=== PATIENT | female | born 1980 | race Caucasian/White ===

== ENCOUNTER 2017-05-12 18:40 | Emergency (ER) | payer BC ==
[2017-05-12] MEDS ORDERED: cefTRIAXone 1 GM VIAL IM STA (19:52)
[2017-05-12] MEDS ORDERED: HYDROcod/ACETAM 5/325 MG TABLET PO STA (19:54)
--- NOTE | 2017-05-12 19:54 | ED Physician Documentation ---
PD HPI SKIN - Stated complaint Stated Complaint: RASH - Chief complaint Chief Complaint: Wound - History obtained from History obtained from: Patient, Family - History of Present Illness Timing - onset: How many days ago (5) Timing - duration: Days (5) Timing - details: Gradual onset Pain level max: 6 Pain level now: 6 Location: RUE (axilla) Quality / character: Painful, Raised, Swelling, Draining (drained today spontaneously.) Improved by: Other (drainage) Worsened by (comment): COMMENT (palpation) Associated symptoms: No: Fever, Facial swelling, Dyspnea, Abd pain, N/V/D Similar symptoms before: Has not had sx before Recently seen: Clinic (started on bactrim, not improving) Review of Systems Constitutional: denies: Fever GI: denies: Vomiting : denies: Now EGA PD PAST MEDICAL HISTORY - Past Medical History Past Medical History: Yes Neuro: Headache/migraine - Past Surgical History Past Surgical History: Yes - Present Medications Home Medications: Ambulatory Orders Medication Instructions Recorded Confirmed Cephalexin [Keflex] 500 mg PO Q6H #28 capsule 05/12/17 FLUoxetine [PROzac] 40 mg PO DAILY 05/12/17 05/12/17 Hydrocodone/Acetaminophen 1 - 2 each PO Q6H PRN #10 tablet 05/12/17 [Hydrocodon-Acetaminophen 5-325] Sulfa Antibiotics 1 tab PO BID 05/12/17 - Allergies Allergies/Adverse Reactions: Allergies Allergy/AdvReac Type Severity Reaction Status Date / Time No Known Drug Allergies Allergy Verified 05/12/17 18:47 - Social History Does the pt smoke?: No Smoking Status: Never smoker Does the pt drink ETOH?: No Does the pt have substance abuse?: No PD ED PE NORMAL - Vitals Vital signs reviewed: Yes - General General: Alert and oriented X 3, No acute distress - Derm Derm: Warm and dry - Extremities Extremities: Other (R axilla - 2x1cm indurated, erythematous area. no drainage.) - Neuro Neuro: Alert and oriented X 3 Results - Vitals Vitals: Vital Signs - 24 hr 05/12/17 05/12/17 18:45 20:45 Temperature 36.6 C 36.5 C Heart Rate 58 L 58 L Respiratory 18 20 Rate Blood Pressure 108/70 121/77 O2 Saturation 98 97 Oxygen O2 Source Room air PD MEDICAL DECISION MAKING - ED course Complexity details: considered differential, d/w patient, d/w family ED course: Patient is a 36-year-old female who presents to the emergency department with right axillary cellulitis and induration, consistent with abscess that had recently drained. Bedside ultrasound reveals no drainable abscess. Will add Keflex to the Bactrim and continue supportive care. Patient is very well- appearing, nontoxic. Patient counseled regarding signs and symptoms for which I believe and urgent re-evaluation would be necessary. Patient with good understanding of and agreement to plan and is comfortable going home at this time This document was made in part using voice recognition software. While efforts are made to proofread this document, sound alike and grammatical errors may occur. Departure - Departure Disposition: 01 Home, Self Care Clinical Impression: Cellulitis Qualifiers: Site of cellulitis: extremity Site of cellulitis of extremity: axilla Laterality: right Qualified Code(s): L03.111 - Cellulitis of right axilla Condition: Good Instructions: ED Staph Infec Abx Tx Only Follow-Up: your,doctor in 3 days [Other] Prescriptions: Hydrocodone/Acetaminophen [Hydrocodon-Acetaminophen 5-325] 1 - 2 each PO Q6H PRN #10 tablet PRN Reason: pain Cephalexin [Keflex] 500 mg PO Q6H #28 capsule Comments: Add the keflex to your antibiotics. Return if you worsen. Do not drink alcohol or drive while on narcotic pain medicine. Note that many narcotic pain relievers also contain tylenol/acetaminophen. Please ensure that your total dose of acetaminophen from all sources does not exceed 3 grams (3000mg) per day. You may constipated on this medication, take a stool softener such as "Colace" twice a day while you are on it. Also recommend a [id number]-scq-[id number] laxative such as senna or MiraLAX any day that you do not have a bowel movement. If you received narcotic pain medication in the emergency department, do not drive or operate machinery for the next 24 hours. Discharge Date/Time: 05/12/17 20:54
[2017-05-12] MEDS ORDERED: HYDROcod/ACETAM 5/325 MG TABLET ONE (20:10)
[2017-05-12] MEDS ORDERED: cefTRIAXone 1 GM VIAL ONE (20:10)
[2017-05-12] MEDS ORDERED: LIDOCAINE 1% 2 ML VIAL ONE ×2 (20:11→20:14)
[2017-05-12 20:48] VITALS: BP 121/77
== END 2017-05-12 20:54 | disposition home or self-care (01) ==
LOC: ED 18:40
DX: L03.111 Cellulitis of right axilla (principal)
CPT/HCPCS: 96372; 99283; A9270

== ENCOUNTER 2018-01-02 15:48 | Outpatient (CLI) | payer BC ==
[2018-01-02 16:19] LABS: BASOPHILS % (AUTO) 0.4 %; EOSINOPHILS # (AUTO) 0.1 10^3/uL (0.0-0.7); EOSINOPHILS % (AUTO) 1.2 %; HGB - HEMOGLOBIN 13.3 g/dL (12.0-16.0); LYMPHOCYTES # (AUTO) 2.4 10^3/uL (1.5-3.5); LYMPHOCYTES % (AUTO) 30.4 %; MEAN CORPUSCULAR HEMOGLOBIN 30.9 pg (27.0-31.0); MEAN CORPUSCULAR HGB CONC 34.3 g/dL (32.0-36.0); MEAN CORPUSCULAR VOLUME 89.9 fL (81.0-99.0); MEAN PLATELET VOLUME 8.2 fL (7.9-10.8); MONOCYTES # (AUTO) 0.4 10^3/uL (0.0-1.0); MONOCYTES % (AUTO) 4.8 %; NEUTROPHILS # (AUTO) 5.1 10^3/uL (1.5-6.6); NEUTROPHILS % (AUTO) 63.2 %; PLT - PLATELET COUNT 293 10^3/uL (130-450); RED CELL DISTRIBUTION WIDTH 12.8 % (12.0-15.0)
[2018-01-02 16:29] LABS: ALBUMIN 4.4 g/dL (3.2-5.5); ALBUMIN/GLOBULIN RATIO 1.2 (1.0-2.2); BILIRUBIN,TOTAL 0.4 mg/dL (0.2-1.0); CALCIUM 8.7 mg/dL (8.5-10.3); CREATININE 0.9 mg/dL (0.4-1.0)
--- NOTE | 2018-01-03 11:53 | XRAY Report ---
TWO VIEW CHEST: 01/02/2018 CLINICAL INDICATION: Cough. FINDINGS: Frontal and lateral views of the chest demonstrate a normal cardiac silhouette. The lungs are clear. No effusion or pneumothorax is present. IMPRESSION: NORMAL CHEST. TD: 01/03/2018 11:52
== END 2018-01-02 15:49 | disposition home or self-care (01) ==
LOC: LAB 15:48 → DI 15:49
PROVIDERS: ATTEND Internal Medicine
DX: R05 Cough (principal); R53.83 Other fatigue; R06.00 Dyspnea, unspecified
CPT/HCPCS: 36415; 71046; 80053; 81599; 82607; 84443; 85025; 86308

== ENCOUNTER 2018-03-05 13:24 | Outpatient (CLI) | payer BC ==
[2018-03-05] MEDS ORDERED: ALBUTEROL NEB 2.5 MG/3 ML INH ONE (15:00)
== END 2018-03-05 13:25 | disposition home or self-care (01) ==
LOC: RT 13:24
PROVIDERS: ATTEND Internal Medicine
DX: R05 Cough (principal)
CPT/HCPCS: 94060; 94664

== ENCOUNTER 2018-03-19 07:39 | Outpatient (CLI) | payer BC ==
[2018-03-19] MEDS ORDERED: IOPAMIDOL-300 100 ML VIAL ONE (08:12)
[2018-03-19] MEDS ORDERED: IOPAMIDOL-300 50 ML VIAL ONE (08:12)
--- NOTE | 2018-03-19 10:58 | CT Report ---
Procedure Date: 03/19/2018 Accession Number: [id number] / [id number] Procedure: CT - Chest W/ CPT Code: FULL RESULT: EXAM: Chest W/ DATE: 03/19/2018 10:07 AM CLINICAL HISTORY: DYSPNEA,CERVICAL CA COMPARISON: None. TECHNIQUE: Routine helical CT imaging was performed through the chest. IV contrast: 100 mL Isovue 300 Reconstructions: Coronal and sagittal. In accordance with CT protocol optimization, one or more of the following dose reduction techniques were utilized for this exam: automated exposure control, adjustment of mA and/or KV based on patient size, or use of iterative reconstructive technique. FINDINGS: Lungs/Pleura: There is a 5 x 4 mm noncalcified nodule in the medial right lower lobe (axial image 41). No other pulmonary nodule or mass lesion is appreciated. No effusion or pneumothorax. Mediastinum: Normal. No adenopathy or masses. The heart and great vessels are normal. Bones: Unremarkable. Visualized Abdomen: Please see separate CT. Other: None. IMPRESSION: Solitary 5 mm noncalcified nodule in the right lower lobe. RADIA
--- NOTE | 2018-03-19 11:01 | CT Report ---
Procedure Date: 03/19/2018 Accession Number: [id number] / [id number] Procedure: CT - Abdomen/Pelvis W/ CPT Code: FULL RESULT: EXAM: Abdomen/Pelvis W/ DATE: 03/19/2018 10:07 AM CLINICAL HISTORY: DYSPNEA,CERVICAL CA COMPARISON: None. TECHNIQUE: Routine helical CT imaging was performed through the abdomen and pelvis. IV contrast: 100 mL Isovue 300. Enteric contrast: Yes. Reconstructions: Coronal and sagittal. In accordance with CT protocol optimization, one or more of the following dose reduction techniques were utilized for this exam: automated exposure control, adjustment of mA and/or KV based on patient size, or use of iterative reconstructive technique. FINDINGS: Lung Bases: Please see separate CT Liver: Normal. No masses. Gallbladder/Bile Ducts: Unremarkable. Spleen: Normal. Pancreas: Normal. Adrenal Glands: Normal. Kidneys: Bilateral nonobstructing renal calculi, measuring up to 3 mm. Peritoneal Cavity/Bowel: Normal. No free fluid, free air or adenopathy. No masses or acute inflammatory process. The appendix is well visualized and normal. Pelvic Organs: The pelvic organs appear unremarkable. No free fluid No pelvic adenopathy. Vasculature: No aneurysms or other significant abnormality. Bones: No significant abnormality. Other: None. IMPRESSION: No evidence of adenopathy. Nonobstructing bilateral renal calculi. RADIA
[2018-03-19] MEDS ORDERED: IOPAMIDOL-300 50 ML VIAL PO ONE (11:15)
[2018-03-19] MEDS ORDERED: IOPAMIDOL-300 100 ML VIAL IVP ONE (11:15)
== END 2018-03-19 07:40 | disposition home or self-care (01) ==
LOC: DI 07:39
PROVIDERS: ATTEND Internal Medicine
DX: R91.1 Solitary pulmonary nodule (principal); C53.9 Malignant neoplasm of cervix uteri, unspecified; N20.0 Calculus of kidney
CPT/HCPCS: 71260; 74177; Q9967

== ENCOUNTER 2019-02-04 09:06 | Outpatient (CLI) | payer BC ==
[~2019-02-04 09:06] MED LIST: ALBUTEROL NEB 2.5 MG/3 ML INH SCH
== END 2019-02-04 09:07 | disposition home or self-care (01) ==
LOC: RT 09:06
PROVIDERS: ATTEND Physician Assistant Medical
DX: R06.00 Dyspnea, unspecified (principal)
CPT/HCPCS: 94060

== ENCOUNTER 2019-02-22 14:11 | Emergency (ER) | payer BC ==
--- NOTE | 2019-02-22 15:24 | ED Physician Documentation ---
PD HPI DYSPNEA - Stated complaint Stated Complaint: SOA/TIGHT CHEST - Chief complaint Chief Complaint: Resp - History obtained from History obtained from: Patient - History of Present Illness Timing - onset: How many months ago (6-8 months of dyspnea with activity, and feeling of tightness/wheezing. Has not had improvement with Albuterol inhalers, nor with Advair or other inhalers. Patient has been on allergy meds. She does not recall oral steroid dosing. 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 Having worse dyspnea the past couple weeks. Slight cough recently.) Timing - onset during: Light activity, Exertion Timing - duration: Months Timing - details: Gradual onset, Still present, Waxing and waning Inciting event(s): No: Out of meds, URI, Exposure (ie smoke) Improved by: Rest. No: Inhaler/neb Worsened by: Exertion, Coughing. No: Laying flat Associated symptoms: Cough (mild), Wheezing. No: Fever, Hemoptysis, Chest pain / discomfort, Palpitations, Bilateral edema Similar symptoms before: No diagnosis (treatment attempts targeted at asthma) Recently seen: Clinic Review of Systems Constitutional: denies: Fever, Chills, Myalgias Nose: reports: Congestion. denies: Rhinorrhea / runny nose Throat: denies: Sore throat Cardiac: denies: Chest pain / pressure Respiratory: reports: Dyspnea, Cough, Wheezing GI: denies: Nausea, Vomiting, Diarrhea Skin: denies: Rash, Lesions Musculoskeletal: denies: Extremity swelling PD PAST MEDICAL HISTORY - Past Medical History Cardiovascular: None Respiratory: Asthma (presumed diagnosis; has not been to specialist as yet.) Neuro: None Endocrine/Autoimmune: None - Past Surgical History Past Surgical History: Yes - Present Medications Home Medications: Ambulatory Orders Medication Instructions Recorded Confirmed Cephalexin [Keflex] 500 mg PO Q6H #28 capsule 05/12/17 FLUoxetine [PROzac] 40 mg PO DAILY 05/12/17 05/12/17 Hydrocodone/Acetaminophen 1 - 2 each PO Q6H PRN #10 tablet 05/12/17 [Hydrocodon-Acetaminophen 5-325] Sulfa Antibiotics 1 tab PO BID 05/12/17 Benzonatate [Tessalon Perle] 100 mg PO TID PRN #30 capsule 02/22/19 dexAMETHasone [Decadron] 4 mg PO DAILY #7 tablet 02/22/19 - Allergies Allergies/Adverse Reactions: Allergies Allergy/AdvReac Type Severity Reaction Status Date / Time No Known Drug Allergies Allergy Verified 02/22/19 14:17 - Social History Does the pt smoke?: No Smoking Status: Never smoker Does the pt drink ETOH?: No Does the pt have substance abuse?: No PD ED PE NORMAL - Vitals Vital signs reviewed: Yes - General General: Alert and oriented X 3, No acute distress, Well developed/nourished - HEENT HEENT: Ears normal, Pharynx benign - Neck Neck: Supple, no meningeal sign, No adenopathy - Cardiac Cardiac: RRR, No murmur - Respiratory Respiratory: Clear bilaterally - Abdomen Abdomen: Soft, Non tender - Derm Derm: Normal color, Warm and dry - Extremities Extremities: No edema, No calf tenderness / cord - Neuro Neuro: Alert and oriented X 3, No motor deficit, Normal speech Results - Vitals Vitals: Vital Signs - 24 hr 02/22/19 02/22/19 14:16 17:20 Temperature 36.9 C 36.4 C L Heart Rate 70 63 Respiratory 20 17 Rate Blood Pressure 122/73 111/72 O2 Saturation 100 100 Oxygen O2 Source Room air - Rads (name of study) chest xray Radiology: Prelim report reviewed (normal), See rad report PD MEDICAL DECISION MAKING - ED course Complexity details: reviewed old records (prior CT showed 5 mm nodule in base previously; this would not really have effect on breathing).), reviewed results (chest xray normal. ), considered differential (sounds asthma and has been on various inhalers. Can try steroids orally. Had recent PFTs which patient says showed obstructive pattern like COPD (but not prior smoker and no noted occupational exposures. 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 See how much improvement in your breathing there is with this. Use Tessalon if needed for cough. Follow-up with your primary care. See if the would want to either refer you to a lung specialist for further assessment since you have already tried several different inhalers and treatments. They could potentially consider an ultrasound of your heart to make sure it does not look heart related as a cause of your shortness of breath. Your chest x-ray appears clear. Discharge Date/Time: 02/22/19 17:20
[2019-02-22] MEDS ORDERED: DEXAMETHASONE 10 MG/ML VIAL PO STA (15:42)
[2019-02-22] MEDS ORDERED: CHERRY SYRUP 10 ML UDC PO ONE (15:42)
[2019-02-22] MEDS ORDERED: BENZONATATE 100 MG CAPSULE PO STA (15:42)
--- NOTE | 2019-02-22 16:21 | XRAY Report ---
Reason: dyspnea/ cough Procedure Date: 02/22/2019 Accession Number: [id number] / [id number] Procedure: XR - Chest 2 View X-Ray CPT Code: 72702 FULL RESULT: EXAM: CHEST RADIOGRAPHY EXAM DATE: 02/22/2019 03:56 PM. CLINICAL HISTORY: Dyspnea. Cough. COMPARISON: CHEST 2 VIEW 01/02/2018 4:22 PM. TECHNIQUE: 2 views. FINDINGS: Lungs/Pleura: No focal opacities evident. No pleural effusion. No pneumothorax. Normal volumes. Mediastinum: Heart and mediastinal contours are unremarkable. Other: No fractures identified. IMPRESSION: Normal 2-view chest radiography. RADIA
[2019-02-22 17:21] VITALS: BP 111/72
== END 2019-02-22 17:20 | disposition home or self-care (01) ==
LOC: ED 14:11
DX: R06.09 Other forms of dyspnea (principal); R91.8 Other nonspecific abnormal finding of lung field
CPT/HCPCS: 71046; 93005; 99283; A9270

== ENCOUNTER 2019-03-15 11:54 | Emergency (ER) | payer BC ==
[2019-03-15] MEDS ORDERED: ONDANSETRON 4 MG/2 ML VIAL IVP STA (12:21)
[2019-03-15] MEDS ORDERED: HYDROmorphone 1 MG/ML CARPUJECT IVP STA (12:21)
--- NOTE | 2019-03-15 12:28 | ED Physician Documentation ---
History of Present Illness - Stated complaint Stated Complaint: LOW BACK PX - Chief complaint Chief Complaint: General - History obtained from History obtained from: Patient - History of Present Illness Timing: Today (She was woken up about 3 to 3-1/2 hours ago by pretty significant pain, she points to the mid axillary line just below the rib cage on the right as the site. There was no injury or abnormal activity that would have caused it. She is nauseous and has vomited. She denies urinary complaints or hematuria. She has a history of hysterectomy and liposuction, no other abdominal surgeries. No history of renal colic or biliary colic.) Review of Systems Constitutional: denies: Fever, Chills, Fatigue Nose: denies: Rhinorrhea / runny nose, Congestion Cardiac: denies: Chest pain / pressure, Palpitations Respiratory: denies: Dyspnea, Cough GI: reports: Abdominal Pain, Nausea, Vomiting. 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 : None HEENT: None Psych: Depression, Anxiety Musculoskeletal: None Derm: None - Past Surgical History Past Surgical History: Yes /PACKAGING SALES CONSULTANT: Hysterectomy - Present Medications Home Medications: Ambulatory Orders Medication Instructions Recorded Confirmed Cephalexin [Keflex] 500 mg PO Q6H #28 capsule 05/12/17 FLUoxetine [PROzac] 40 mg PO DAILY 05/12/17 05/12/17 Hydrocodone/Acetaminophen 1 - 2 each PO Q6H PRN #10 tablet 05/12/17 [Hydrocodon-Acetaminophen 5-325] Sulfa Antibiotics 1 tab PO BID 05/12/17 Benzonatate [Tessalon Perle] 100 mg PO TID PRN #30 capsule 02/22/19 dexAMETHasone [Decadron] 4 mg PO DAILY #7 tablet 02/22/19 Ibuprofen [Motrin] 800 mg PO Q8H PRN #30 tablet 03/15/19 Ondansetron Odt [Zofran] 4 mg TL Q6H PRN #10 tablet 03/15/19 Oxycodone HCl/Acetaminophen 1 - 2 each PO Q6H PRN #20 tablet 03/15/19 [Percocet 5-325 mg Tablet] Tamsulosin [Flomax] 0.4 mg PO DAILY #14 capsule 03/15/19 - Allergies Allergies/Adverse Reactions: Allergies Allergy/AdvReac Type Severity Reaction Status Date / Time No Known Drug Allergies Allergy Verified 02/22/19 14:17 - Social History Does the pt smoke?: No Smoking Status: Never smoker Does the pt drink ETOH?: No Does the pt have substance abuse?: No - Immunizations Immunizations are current?: Yes - POLST Patient has POLST: No PD ED PE NORMAL - Vitals Vital signs reviewed: Yes - General General: Alert and oriented X 3, Other (uncomfortable) - HEENT HEENT: PERRL, EOMI - Neck Neck: Supple, no meningeal sign, No bony TTP - Cardiac Cardiac: RRR, No murmur - Respiratory Respiratory: No respiratory distress, Clear bilaterally - Abdomen Abdomen: Normal bowel sounds, Soft, Other (mod TTP RUQ>R flank.) - Back Back: No CVA TTP, No spinal TTP - Derm Derm: Normal color, Warm and dry - Extremities Extremities: No edema, No calf tenderness / cord - Neuro Neuro: Alert and oriented X 3, Normal speech Results - Vitals Vitals: Vital Signs - 24 hr 03/15/19 11:56 Temperature 36.5 C Heart Rate 71 Respiratory 16 Rate Blood Pressure 105/68 O2 Saturation 100 Oxygen O2 Source Room air - Labs Labs: Laboratory Tests 03/15/19 03/15/19 03/15/19 12:26 12:26 12:42 WBC 10.9 H RBC 3.97 L Hgb 12.4 Hct 36.5 L MCV 91.9 MCH 31.2 H MCHC 34.0 RDW 12.4 Plt Count 270 MPV 9.8 Neut # (Auto) 8.4 H Lymph # (Auto) 1.7 Amelia # (Auto) 0.6 Eos # (Auto) 0.1 Baso # (Auto) 0.1 Absolute Nucleated RBC 0.00 Nucleated RBC % 0.0 Sodium 138 Potassium 4.1 Chloride 103 Carbon Dioxide 24 Anion Gap 11.0 BUN 10 Creatinine 1.0 Estimated GFR (MDRD) 61 L Glucose 101 H Calcium 8.9 Total Bilirubin 0.5 AST 15 ALT 10 Alkaline Phosphatase 48 Total Protein 7.1 Albumin 3.9 Globulin 3.2 Albumin/Globulin Ratio 1.2 Lipase 31 Urine Color YELLOW Urine Clarity HAZY Urine pH 6.0 Ur Specific Brule 1.010 Urine Protein NEGATIVE Urine Glucose (UA) NEGATIVE Urine Ketones NEGATIVE Urine Occult Blood LARGE H Urine Nitrite NEGATIVE Urine Bilirubin NEGATIVE Urine Urobilinogen 0.2 (NORMAL) Ur Leukocyte Esterase NEGATIVE Urine RBC 11-25 H Urine WBC 4-5 Ur Squamous Epith Cells FEW Squamous Urine Bacteria Few Ur Microscopic Review INDICATED Urine Culture Comments NOT INDICATED - Rads (name of study) RUQ sono Radiology: EMP read contemporaneously, See rad report PD MEDICAL DECISION MAKING - ED course ED course: 38-year-old woman presents with acute right abdominal pain, found to have renal colic on imaging, pain controlled with Toradol and Dilaudid. She was requesting discharge, counseled on the need for potential urology follow-up if not better. Given urine strainers by the nurse. Departure - Departure Disposition: 01 Home, Self Care Clinical Impression: Renal colic on right side Condition: Good Record reviewed to determine appropriate education?: Yes Health Concerns: Right abdominal pain Plan of Treatment: Hematuria noted an ultrasound showing hydronephrosis and nonobstructing calculi with ureteral jets intact. Care Goals: Pain control, follow-up with urology this week if not improved. Assessment: as above Instructions: ED Stone Renal W Colic Follow-Up: Garrick Palma MD [Physician No Access] - Within 1 week Prescriptions: Ibuprofen [Motrin] 800 mg PO Q8H PRN #30 tablet PRN Reason: PAIN &/OR FEVER Ondansetron Odt [Zofran] 4 mg TL Q6H PRN #10 tablet PRN Reason: Nausea / Vomiting Oxycodone HCl/Acetaminophen [Percocet 5-325 mg Tablet] 1 - 2 each PO Q6H PRN #20 tablet PRN Reason: pain Tamsulosin [Flomax] 0.4 mg PO DAILY #14 capsule
[2019-03-15 12:32] LABS: BASOPHILS # (AUTO) 0.1 10^3/uL (0.0-0.1); BASOPHILS % (AUTO) 0.5 %; EOSINOPHILS # (AUTO) 0.1 10^3/uL (0.0-0.7); HGB - HEMOGLOBIN 12.4 g/dL (12.0-16.0); LYMPHOCYTES # (AUTO) 1.7 10^3/uL (1.5-3.5); LYMPHOCYTES % (AUTO) 15.3 %; MEAN CORPUSCULAR HEMOGLOBIN 31.2 pg (27.0-31.0); MEAN CORPUSCULAR VOLUME 91.9 fL (81.0-99.0); MEAN PLATELET VOLUME 9.8 fL (7.9-10.8); MONOCYTES # (AUTO) 0.6 10^3/uL (0.0-1.0); MONOCYTES % (AUTO) 5.8 %; NEUTROPHILS # (AUTO) 8.4 10^3/uL (1.5-6.6); NEUTROPHILS % (AUTO) 76.9 %; PLT - PLATELET COUNT 270 10^3/uL (130-450); RED BLOOD COUNT 3.97 10^6/uL (4.20-5.40); RED CELL DISTRIBUTION WIDTH 12.4 % (12.0-15.0); WHITE BLOOD COUNT 10.9 x10^3/uL (4.8-10.8)
[2019-03-15 12:47] LABS: ALBUMIN 3.9 g/dL (3.2-5.5); ALBUMIN/GLOBULIN RATIO 1.2 (1.0-2.2); BILIRUBIN,TOTAL 0.5 mg/dL (0.2-1.0); CALCIUM 8.9 mg/dL (8.5-10.3); TOTAL PROTEIN 7.1 g/dL (6.7-8.2)
[2019-03-15] MEDS ORDERED: KETOROLAC 30 MG/ML VIAL IVP STA (13:19)
[2019-03-15] MEDS ORDERED: TAMSULOSIN 0.4 MG CAPSULE PO STA (13:19)
[2019-03-15 13:22] LABS: BILIRUBIN,URINE NEGATIVE (NEGATIVE); GLUCOSE, URINE (UA) NEGATIVE (NEGATIVE); KETONES,URINE (UA) NEGATIVE (NEGATIVE); LEUKOCYTE ESTERASE, URINE NEGATIVE (NEGATIVE); NITRITE,URINE NEGATIVE (NEGATIVE); OCCULT BLOOD,URINE LARGE (NEGATIVE); PROTEIN,URINE NEGATIVE (NEGATIVE); UROBILINOGEN,URINE 0.2 (NORMAL) E.U./dL (NORMAL)
[2019-03-15 13:25] LABS: CLARITY,URINE HAZY (CLEAR)
[2019-03-15 13:30] LABS: BACTERIA,URINE Few /HPF (None Seen); SQUAMOUS EPITHELIAL CELL,UR FEW Squamous (<= Few)
--- NOTE | 2019-03-15 13:44 | Ultrasound Report ---
Reason: RUQ pain Procedure Date: 03/15/2019 Accession Number: [id number] / [id number] Procedure: US - Abdomen Limited CPT Code: FULL RESULT: EXAM: ABDOMEN ULTRASOUND LIMITED, RUQ EXAM DATE: 03/15/2019 01:18 PM. CLINICAL HISTORY: Right upper quadrant pain. Back and flank pain. History of bilateral renal stones. COMPARISON: ABDOMEN/PELVIS W/ 03/19/2018 9:26 AM. TECHNIQUE: Real-time scanning was performed with static images obtained. FINDINGS: Liver: Hepatic parenchymal echotexture is within normal limits. No hepatic lesions. No intrahepatic ductal dilatation . The liver is not enlarged, 15 cm. Main portal vein flow: Hepatopetal. Gallbladder: Normal. No stones, wall thickening, or sonographic Ritter's sign. Biliary System: CBD measures 5 mm. No intrahepatic or extrahepatic ductal dilatation. Other: Right kidney measures 9.8 cm. There is mild to moderate right hydronephrosis of the right kidney. Renal calculi are seen in the right kidney the largest measuring 7 mm. Ureteral jets are present bilaterally within the urinary bladder. IMPRESSION: 1. Normal gallbladder. No biliary ductal dilatation. 2. Mild to moderate right hydronephrosis. Right renal nonobstructing calculi. Both ureteral jets are seen in the urinary bladder. RADIA
[2019-03-15 14:16] VITALS: BP 113/73
== END 2019-03-15 14:19 | disposition home or self-care (01) ==
LOC: ED 11:54
DX: N13.2 Hydronephrosis with renal and ureteral calculous obstruction (principal)
CPT/HCPCS: 36415; 76705; 80053; 81001; 83690; 85025; 96374; 96375; 99283; 99284; A9270; J1170; 81003; 87086

== ENCOUNTER 2019-04-06 17:12 | Emergency (ER) | payer BC ==
[2019-04-06 17:43] LABS: BASOPHILS % (AUTO) 0.3 %; EOSINOPHILS # (AUTO) 0.1 10^3/uL (0.0-0.7); EOSINOPHILS % (AUTO) 0.7 %; HGB - HEMOGLOBIN 12.2 g/dL (12.0-16.0); MEAN CORPUSCULAR HGB CONC 32.2 g/dL (32.0-36.0); MEAN CORPUSCULAR VOLUME 93.1 fL (81.0-99.0); MONOCYTES # (AUTO) 0.8 10^3/uL (0.0-1.0); MONOCYTES % (AUTO) 6.8 %; NEUTROPHILS # (AUTO) 8.6 10^3/uL (1.5-6.6); NEUTROPHILS % (AUTO) 74.9 %; PLT - PLATELET COUNT 275 10^3/uL (130-450); RED BLOOD COUNT 4.07 10^6/uL (4.20-5.40); RED CELL DISTRIBUTION WIDTH 12.7 % (12.0-15.0); WHITE BLOOD COUNT 11.5 x10^3/uL (4.8-10.8)
[2019-04-06 17:52] LABS: BILIRUBIN,URINE NEGATIVE (NEGATIVE); GLUCOSE, URINE (UA) NEGATIVE (NEGATIVE); KETONES,URINE (UA) NEGATIVE (NEGATIVE); LEUKOCYTE ESTERASE, URINE NEGATIVE (NEGATIVE); NITRITE,URINE NEGATIVE (NEGATIVE); OCCULT BLOOD,URINE MODERATE (NEGATIVE); PH,URINE 6.5 PH (5.0-7.5); PROTEIN,URINE NEGATIVE (NEGATIVE); UROBILINOGEN,URINE 0.2 (NORMAL) E.U./dL (NORMAL)
[2019-04-06 17:58] LABS: ALBUMIN 4.3 g/dL (3.2-5.5); ALBUMIN/GLOBULIN RATIO 1.4 (1.0-2.2); BILIRUBIN,TOTAL 0.7 mg/dL (0.2-1.0); CALCIUM 9.2 mg/dL (8.5-10.3); CREATININE 1.1 mg/dL (0.4-1.0); TOTAL PROTEIN 7.4 g/dL (6.7-8.2)
[2019-04-06 18:02] LABS: CLARITY,URINE HAZY (CLEAR)
[2019-04-06 18:03] LABS: BACTERIA,URINE Few /HPF (None Seen); MUCUS,URINE Marked Strands; SQUAMOUS EPITHELIAL CELL,UR FEW Squamous (<= Few)
--- NOTE | 2019-04-06 18:15 | ED Physician Documentation ---
PD HPI ABD PAIN - Stated complaint Stated Complaint: BACK PX/N - Chief complaint Chief Complaint: Abd Pain - History obtained from History obtained from: Patient - History of Present Illness Timing - onset: Today (Worse R flank pain today, dx renal colic earlier this month. Dull ache most of the month. No meds today. C/O nausea. 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: Hysterectomy - Present Medications Home Medications: Ambulatory Orders Medication Instructions Recorded Confirmed Cephalexin [Keflex] 500 mg PO Q6H #28 capsule 05/12/17 FLUoxetine [PROzac] 40 mg PO DAILY 05/12/17 05/12/17 Hydrocodone/Acetaminophen 1 - 2 each PO Q6H PRN #10 tablet 05/12/17 [Hydrocodon-Acetaminophen 5-325] Sulfa Antibiotics 1 tab PO BID 05/12/17 Benzonatate [Tessalon Perle] 100 mg PO TID PRN #30 capsule 02/22/19 dexAMETHasone [Decadron] 4 mg PO DAILY #7 tablet 02/22/19 Ibuprofen [Motrin] 800 mg PO Q8H PRN #30 tablet 03/15/19 Ondansetron Odt [Zofran] 4 mg TL Q6H PRN #10 tablet 03/15/19 Oxycodone HCl/Acetaminophen 1 - 2 each PO Q6H PRN #20 tablet 03/15/19 [Percocet 5-325 mg Tablet] Tamsulosin [Flomax] 0.4 mg PO DAILY #14 capsule 03/15/19 Tamsulosin [Flomax] 0.4 mg PO DAILY #14 capsule 04/06/19 - Allergies Allergies/Adverse Reactions: Allergies Allergy/AdvReac Type Severity Reaction Status Date / Time No Known Drug Allergies Allergy Verified 04/06/19 17:30 - Social History Does the pt smoke?: No Smoking Status: Never smoker Does the pt drink ETOH?: No Does the pt have substance abuse?: No - Immunizations Immunizations are current?: Yes - POLST Patient has POLST: No PD ED PE NORMAL - Vitals Vital signs reviewed: Yes - General General: Alert and oriented X 3 - Abdomen Abdomen: Soft, Non tender - Back Back: No CVA TTP, No spinal TTP - Derm Derm: Normal color, Warm and dry - Extremities Extremities: No edema, No calf tenderness / cord - Neuro Neuro: Alert and oriented X 3, Normal speech Results - Vitals Vitals: Vital Signs - 24 hr 04/06/19 04/06/19 17:25 19:49 Temperature 36.9 C Heart Rate 76 68 Respiratory 20 17 Rate Blood Pressure 113/62 115/64 O2 Saturation 96 99 Oxygen O2 Source Room air - Labs Labs: Laboratory Tests 04/06/19 04/06/19 04/06/19 17:34 17:34 17:37 WBC 11.5 H RBC 4.07 L Hgb 12.2 Hct 37.9 MCV 93.1 MCH 30.0 MCHC 32.2 RDW 12.7 Plt Count 275 MPV 10.0 Neut # (Auto) 8.6 H Lymph # (Auto) 2.0 [place] # (Auto) 0.8 Eos # (Auto) 0.1 Baso # (Auto) 0.0 Absolute Nucleated RBC 0.00 Nucleated RBC % 0.0 Sodium 138 Potassium 3.7 Chloride 102 Carbon Dioxide 24 Anion Gap 12.0 BUN 16 Creatinine 1.1 H Estimated GFR (MDRD) 55 L Glucose 93 Calcium 9.2 Total Bilirubin 0.7 AST 15 ALT 13 Alkaline Phosphatase 42 Total Protein 7.4 Albumin 4.3 Globulin 3.1 Albumin/Globulin Ratio 1.4 Lipase 26 Urine Color YELLOW Urine Clarity HAZY Urine pH 6.5 Ur Specific [place] <=1.005 Urine Protein NEGATIVE Urine Glucose (UA) NEGATIVE Urine Ketones NEGATIVE Urine Occult Blood MODERATE H Urine Nitrite NEGATIVE Urine Bilirubin NEGATIVE Urine Urobilinogen 0.2 (NORMAL) Ur Leukocyte Esterase NEGATIVE Urine RBC 6-10 H Urine WBC 0-3 Ur Squamous Epith Cells FEW Squamous Urine Bacteria Few Urine Mucus Marked Strands Ur Microscopic Review INDICATED Urine Culture Comments NOT INDICATED Urine HCG, Qual 04/06/19 17:37 WBC RBC Hgb Hct MCV MCH MCHC RDW Plt Count MPV Neut # (Auto) Lymph # (Auto) [place] # (Auto) Eos # (Auto) Baso # (Auto) Absolute Nucleated RBC Nucleated RBC % Sodium Potassium Chloride Carbon Dioxide Anion Gap BUN Creatinine Estimated GFR (MDRD) Glucose Calcium Total Bilirubin AST ALT Alkaline Phosphatase Total Protein Albumin Globulin Albumin/Globulin Ratio Lipase Urine Color Urine Clarity Urine pH Ur Specific [place] <=1.005 Urine Protein Urine Glucose (UA) Urine Ketones Urine Occult Blood Urine Nitrite Urine Bilirubin Urine Urobilinogen Ur Leukocyte Esterase Urine RBC Urine WBC Ur Squamous Epith Cells Urine Bacteria Urine Mucus Ur Microscopic Review Urine Culture Comments Urine HCG, Qual NEGATIVE - Rads (name of study) CT Kub Radiology: EMP read contemporaneously (5x6mm R distal ureteral stone, nephrolithiasis) PD MEDICAL DECISION MAKING - ED course ED course: 38-year-old woman with recurrent renal colic. She is been in pain to some extent for 3 weeks straight now so this time the CT was done to better assess the size of the stone, pain-free after meds here, advised on urology follow-up. Departure - Departure Disposition: 01 Home, Self Care Clinical Impression: Renal colic on right side Condition: Good Record reviewed to determine appropriate education?: Yes Instructions: ED Stone Renal W Colic Follow-Up: Manish Hughes MD [Physician No Access] - Within 3 Days Prescriptions: Tamsulosin [Flomax] 0.4 mg PO DAILY #14 capsule Comments: Use the urine strainers as shown, if you get any results take the product to the urologist office when you go. Drink plenty of fluids. Return for new or worsening symptoms.
[2019-04-06] MEDS ORDERED: KETOROLAC 30 MG/ML VIAL IVP STA (18:19)
[2019-04-06] MEDS ORDERED: HYDROmorphone 1 MG/ML CARPUJECT IVP STA (18:19)
[2019-04-06] MEDS ORDERED: SODIUM CHLORIDE 0.9% 1,000 ML IV ONE (18:19)
[2019-04-06] MEDS ORDERED: ONDANSETRON 4 MG/2 ML VIAL IVP STA (18:19)
[2019-04-06 19:24] LABS: HCG UR QUAL NEGATIVE
--- NOTE | 2019-04-06 19:33 | CT Report ---
Reason: R flank pain Procedure Date: 04/06/2019 Accession Number: [id number] / [id number] Procedure: CT - Abdomen/Pelvis WO CPT Code: FULL RESULT: EXAM: CT ABDOMEN AND PELVIS (CT KUB) EXAM DATE: 04/06/2019 07:01 PM. CLINICAL HISTORY: R flank pain. COMPARISONS: ABDOMEN LIMITED 03/15/2019 12:46 PM ABDOMEN/PELVIS W/ 03/19/2018 9:26 AM. TECHNIQUE: Routine axial helical CT imaging was performed through the abdomen and pelvis without IV contrast. Reconstructions: Coronal and sagittal. In accordance with CT protocol optimization, one or more of the following dose reduction techniques were utilized for this exam: automated exposure control, adjustment of mA and/or KV based on patient size, or use of iterative reconstructive technique. FINDINGS: Lung Bases: Unremarkable. Right Kidney/Ureter: There is a 4 x 5 mm stone in the distal right ureter, approximately 7 mm from the ureterovesical junction. This stone causes minimal right hydroureteronephrosis. There are multiple nonobstructing intrarenal stones. No significant perinephric fat stranding. Left Kidney/Ureter: Multiple nonobstructing intrarenal stones. No hydronephrosis. No significant perinephric fat stranding. Other Solid Organs: Noncontrast images of the solid organs are unremarkable. Gallbladder/Bile Ducts: Unremarkable. Peritoneal Cavity: Nonobstructive bowel gas pattern. The appendix is normal. No free air or free fluid. Pelvic Organs: The urinary bladder is unremarkable. Possible postoperative changes from subtotal hysterectomy. The ovaries appear unremarkable by noncontrast CT. Vasculature: Unremarkable. Other: None. IMPRESSION: Distal right ureter stone measuring 4 x 5 mm, which causes minimal right hydroureteronephrosis. Multiple nonobstructing intrarenal stones bilaterally. Nonobstructive bowel gas pattern. Normal appendix. RADIA
[2019-04-06 20:21] VITALS: BP 105/61
== END 2019-04-06 20:20 | disposition home or self-care (01) ==
LOC: ED 17:12
DX: N13.2 Hydronephrosis with renal and ureteral calculous obstruction (principal)
CPT/HCPCS: 36415; 74176; 80053; 81001; 81025; 83690; 85025; 96374; 99284; J1170; 81003; 87086

== ENCOUNTER 2020-11-12 14:30 | Emergency (ER) | payer BC ==
[2020-11-12] MEDS ORDERED: FAMOTIDINE 20 MG TABLET PO STA (15:05)
[2020-11-12] MEDS ORDERED: DEXAMETHASONE 10 MG/ML VIAL PO STA (15:05)
[2020-11-12] MEDS ORDERED: CHERRY SYRUP 10 ML UDC PO ONE (15:05)
[2020-11-12] MEDS ORDERED: CETIRIZINE 10 MG TABLET PO STA (15:05)
--- NOTE | 2020-11-12 15:08 | ED Physician Documentation ---
PD HPI SKIN - Stated complaint Stated Complaint: ALLERGIC REACTION - Chief complaint Chief Complaint: Allergic Rx - History obtained from History obtained from: Patient - History of Present Illness Timing - onset: How many days ago (several) Timing - duration: Days (several) Timing - details: Gradual onset, Still present Location: Face (Initially on her face near the bridge of the nose and above the eyebrows but then generalized to around the eyes and cheeks. Today on her neck anteriorly as well. Not body wide yet.), Neck Quality / character: Itchy (initially), Burning (today) Improved by: No: Benadryl Associated symptoms: Facial swelling (around eyes). No: Fever, Myalgias, Dyspnea, N/V/D Contributing factors: Recent illness (mild nasal congestion and cough few days prior, better now.), Unknown (she wears glasses, but no change in nosepads/etc. Wears cloth mask at work, not N95 or such as irritant on nasal bridge.). No: Exposed to medication, Exposed to food, Exposed to soap / lotion Similar symptoms before: Has not had sx before Recently seen: Not recently seen Review of Systems Constitutional: denies: Fever, Chills Nose: reports: Congestion. denies: Rhinorrhea / runny nose Throat: denies: Sore throat Cardiac: denies: Chest pain / pressure Respiratory: reports: Cough (mild). denies: Dyspnea, Wheezing GI: denies: Nausea, Vomiting, Diarrhea Skin: reports: Rash (hive like itchy areas). 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 - Present Medications Home Medications: Ambulatory Orders Medication Instructions Recorded Confirmed FLUoxetine [PROzac] 40 mg PO DAILY 05/12/17 05/12/17 Hydrocodone/Acetaminophen 1 - 2 each PO Q6H PRN #10 tablet 05/12/17 [Hydrocodon-Acetaminophen 5-325] Sulfa Antibiotics 1 tab PO BID 05/12/17 cephALEXin [Keflex] 500 mg PO Q6H #28 capsule 05/12/17 Benzonatate [Tessalon Perle] 100 mg PO TID PRN #30 capsule 02/22/19 dexAMETHasone [Decadron] 4 mg PO DAILY #7 tablet 02/22/19 Ibuprofen [Motrin] 800 mg PO Q8H PRN #30 tablet 03/15/19 Ondansetron Odt [Zofran] 4 mg TL Q6H PRN #10 tablet 03/15/19 Oxycodone HCl/Acetaminophen 1 - 2 each PO Q6H PRN #20 tablet 03/15/19 [Percocet 5-325 mg Tablet] Tamsulosin [Flomax] 0.4 mg PO DAILY #14 capsule 03/15/19 Tamsulosin [Flomax] 0.4 mg PO DAILY #14 capsule 04/06/19 Betamethasone Dipropionate 1 applic TOP TID 5 Days #15 g 11/12/20 Cetirizine [ZyrTEC] 10 mg PO BID #15 tablet 11/12/20 dexAMETHasone [Decadron] 4 mg PO DAILY #5 tablet 11/12/20 hydrOXYzine HCL [Hydroxyzine HCl] 25 mg PO Q6H PRN #15 tablet 11/12/20 - Allergies Allergies/Adverse Reactions: Allergies Allergy/AdvReac Type Severity Reaction Status Date / Time No Known Drug Allergies Allergy Verified 11/12/20 14:41 - Social History Does the pt smoke?: No Smoking Status: Never smoker Does the pt drink ETOH?: No Does the pt have substance abuse?: No - Immunizations Immunizations are current?: Yes - POLST Patient has POLST: No PD ED PE NORMAL - Vitals Vital signs reviewed: Yes - General General: Alert and oriented X 3, Well developed/nourished - HEENT HEENT: Moist mucous membranes, Pharynx benign, Other (periorbital edema/redness and on forehead. Some patchy red nonvesicular hives on face and anterior neck/upper chest. ) - Neck Neck: Supple, no meningeal sign, No adenopathy - Cardiac Cardiac: RRR, No murmur - Respiratory Respiratory: Clear bilaterally - Derm Derm: Normal color, Warm and dry, Other (hives as noted above. ) Results - Vitals Vitals: Vital Signs - 24 hr 11/12/20 11/12/20 14:35 15:32 Temperature 36.7 C 36.5 C Heart Rate 93 88 Respiratory 17 20 Rate Blood Pressure 99/66 124/72 O2 Saturation 99 100 Oxygen O2 Source Room air PD MEDICAL DECISION MAKING - ED course Complexity details: considered differential (unclear initiator of the hives. ), d/w patient Departure - Departure Disposition: 01 Home, Self Care Clinical Impression: Acute urticaria Condition: Stable Record reviewed to determine appropriate education?: Yes Instructions: ED Allergic Reaction General Other Follow-Up: Marce Mir PA-C [Primary Care Provider] - Prescriptions: Betamethasone Dipropionate 1 applic TOP TID 5 Days #15 g dexAMETHasone [Decadron] 4 mg PO DAILY #5 tablet hydrOXYzine HCL [Hydroxyzine HCl] 25 mg PO Q6H PRN #15 tablet PRN Reason: Itching Cetirizine [ZyrTEC] 10 mg PO BID #15 tablet Comments: Decadron oral steroid daily for the next week. You can apply a topical steroid to the major areas on the face slightly 2 or 3 times daily for the next several days to help augment the oral steroid. Antihistamines such as cetirizine twice daily. To that add Benadryl or Hycet for oxazine if needed for itching. Cool towels to the area can help as well. Avoid warm showers or baths as this will augment the blood flow and release more histamine and itching. Recheck if not improved well over the next several days and resolved. Follow-up with your primary care if it is not fully resolved with the above treatment regimen or if recurrent in the near future. That may suggest the need for specific allergy testing to identify a cause. Discharge Date/Time: 11/12/20 15:35
[2020-11-12 15:35] VITALS: BP 124/72
== END 2020-11-12 15:35 | disposition home or self-care (01) ==
LOC: ED 14:30
DX: L50.9 Urticaria, unspecified (principal)
CPT/HCPCS: 99284; A9270

== ENCOUNTER 2022-09-13 09:25 | Outpatient (CLI) | payer BC | END 2022-09-13 09:26 | disposition home or self-care (01) | LOC: DI 09:25 | PROVIDERS: ATTEND Internal Medicine | DX: R06.00 Dyspnea, unspecified (principal); J44.9 Chronic obstructive pulmonary disease, unspecified; I34.0 Nonrheumatic mitral (valve) insufficiency | CPT/HCPCS: 93306 ==

== ENCOUNTER 2022-09-13 09:27 | Outpatient (CLI) | payer BC ==
--- NOTE | 2022-09-13 13:35 | CT Report ---
PROCEDURE: CHEST WO INDICATIONS: DYSPNEA TECHNIQUE: Noncontrast 1mm axial images were acquired from the pulmonary apices to the posterior costophrenic an gles. Axial 5 mm soft tissue kernel reconstructions were performed as well as 8 mm axial MIP and cor onal and sagittal 5 mm reformations. For radiation dose reduction, the following was used: automate d exposure control, adjustment of mA and/or kV according to patient size. COMPARISON: CT 03/19/2018 FINDINGS: Image quality: Slightly motion degraded Lungs and pleura: Basal atelectasis/scarring. No dense consolidation. No pleural effusions. No overtl y suspicious pulmonary nodule requiring follow-up is identified. Small nodules are present, stable fr om prior imaging, most notably medial right lower lobe nodule (4/177). Mediastinum, heart, and esophagus: No hiatal hernia. Heart size is normal. No pathologic adenopathy b y size criteria. Chest wall and thyroid: Thyroid is unremarkable. Chest wall is unremarkable. Upper abdomen: Multiple intrarenal small calculi, without overt hydronephrosis, partially seen. Bones: No acute or suspicious osseous abnormality. IMPRESSION: No acute thoracic abnormality. Other stable/incidental findings as above. Reviewed by: Bry Ness MD on 09/13/2022 1:34 PM PST Approved by: Bry Ness MD on 09/13/2022 1:34 PM PST Station ID: [id number]
== END 2022-09-13 09:28 | disposition home or self-care (01) ==
LOC: DI 09:27
PROVIDERS: ATTEND Internal Medicine
DX: R06.00 Dyspnea, unspecified (principal); J44.9 Chronic obstructive pulmonary disease, unspecified; I34.0 Nonrheumatic mitral (valve) insufficiency
CPT/HCPCS: 93306

== ENCOUNTER 2023-08-19 04:54 | Emergency (ER) | payer BC ==
[2023-08-19 05:11] VITALS: O2SAT 100
[2023-08-19] MEDS ORDERED: SODIUM CHLORIDE 0.9% 1,000 ML IV STA ×2 (05:16→06:15)
[2023-08-19] MEDS ORDERED: KETOROLAC 15 MG/ML VIAL IVP STA (05:16)
[2023-08-19] MEDS ORDERED: ONDANSETRON 4 MG/2 ML VIAL IVP STA (05:16)
--- NOTE | 2023-08-19 05:19 | ED Physician Documentation ---
PD HPI FEMALE - Stated complaint Stated Complaint: RT SIDE PX/NAUSEA/CHILLS - Chief complaint Chief Complaint: Abd Pain - History obtained from History obtained from: Patient - Additional information Additional information: 42-year-old female with remote history of uterine cancer status post partial hysterectomy presents by private vehicle from home for 1 week of right flank pain, worse since 2 AM today. Patient states that the pain is in her right flank and wraps around to her right lower abdomen. Pain is constant, nothing seems to make it better or worse. No medications taken at home for symptoms. Patient does report history of kidney stones in the past, however it has been several years since her last kidney stone and she is not sure if this pain is similar or not. Denies blood in her urine, frequency, dysuria. Review of Systems Constitutional: denies: Fever, Chills GI: reports: Nausea. denies: Abdominal Pain, Vomiting, Constipation, Diarrhea : reports: Other (FLANK PAIN). denies: Dysuria, Frequency, Hesitancy Musculoskeletal: reports: Back pain. 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 - Present Medications Home Medications: Ambulatory Orders Medication Instructions Recorded Confirmed Naproxen 250 mg PO BID PRN #30 tablet 08/19/23 Ondansetron Odt [Zofran] 4 mg TL Q6H PRN #30 tablet 08/19/23 Oxycodone HCl/Acetaminophen 1 - 2 each PO Q6H PRN #14 tablet 08/19/23 [Percocet 5-325 mg Tablet] Tamsulosin [Flomax] 0.4 mg PO DAILY #30 cap 08/19/23 Trazodone HCl 100 mg PO HS 08/19/23 08/19/23 - Allergies Allergies/Adverse Reactions: Allergies Allergy/AdvReac Type Severity Reaction Status Date / Time No Known Drug Allergies Allergy Verified 08/19/23 05:06 - Social History Does the pt smoke?: No Smoking Status: Never smoker Does the pt drink ETOH?: Yes Does the pt have substance abuse?: No - Immunizations Immunizations are current?: Yes - POLST Patient has POLST: No PD ED PE NORMAL - Vitals Vital signs reviewed: Yes - General General: Alert and oriented X 3, Well developed/nourished, Other (INCOMFORTABLE, IN PAIN) - HEENT HEENT: Atraumatic - Cardiac Cardiac: RRR, Strong equal pulses - Respiratory Respiratory: No respiratory distress, Clear bilaterally - Abdomen Abdomen: Soft, Non tender, Non distended - Back Back: No spinal TTP, Other (R FLANK TENDER TO PERCUSSION) - Derm Derm: Normal color, Warm and dry, No rash - Extremities Extremities: No deformity, No tenderness to palpate, Normal ROM s pain, No edema - Neuro Neuro: Alert and oriented X 3, 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, No motor deficit, Normal speech - Psych Psych: Normal mood, Normal affect Results - Vitals Vitals: Vital Signs - 24 hr 08/19/23 08/19/23 05:05 06:04 Temperature 36.2 C L Heart Rate 76 54 L Respiratory 16 16 Rate Blood Pressure 107/77 111/48 L O2 Saturation 100 100 Oxygen O2 Source Room air - Labs Labs: Laboratory Tests 08/19/23 08/19/23 05:25 05:25 WBC 7.9 RBC 4.12 L Hgb 12.6 Hct 37.6 MCV 91.3 MCH 30.6 MCHC 33.5 RDW 12.2 Plt Count 261 MPV 10.4 Neut # (Auto) 4.9 Lymph # (Auto) 2.2 [place] # (Auto) 0.6 Eos # (Auto) 0.2 Baso # (Auto) 0.0 Absolute Nucleated RBC 0.00 Nucleated RBC % 0.0 Sodium 137 Potassium 3.6 Chloride 106 Carbon Dioxide 24 Anion Gap 7.0 BUN 18 Creatinine 1.0 Estimated GFR (MDRD) 60 L Glucose 99 Calcium 9.0 Total Bilirubin 0.3 AST 13 ALT 11 Alkaline Phosphatase 51 Total Protein 6.9 Albumin 4.1 Globulin 2.8 Albumin/Globulin Ratio 1.5 PD Medical Decision Making - ED course Complexity details: reviewed old records, reviewed results, re-evaluated patient, considered differential, d/w patient ED course: Well-appearing patient with 1 week of flank pain. Description and characteristic of symptoms is consistent with renal stone, and patient states that she has a history of stones in the past, however she cannot remember if this pain is similar or not. Will order nausea, pain medications, IV fluids. Laboratory work is reviewed, there is no leukocytosis, kidney function is normal, GFR is within normal limits. Preliminary review of CT of the abdomen and pelvis without contrast shows a small stone on the right-hand side with mild hydronephrosis. Pending formal radiology read. Radiology read shows 1.5 cm stone with mild hydronephrosis. Patient states that her pain has been improved with Toradol and IV fluids. Will add additional liter of IV fluids for optimal hydration and plan to discharge home with urology follow-up. Patient was advised of her lab and imaging findings, she states that she will follow-up with urology and will make sure she stays hydrated at home. Prescriptions for Zofran, Percocet, naproxen, Flomax sent to patient's pharmacy of choice. Departure - Departure Disposition: 01 , Self Care Clinical Impression: Renal colic Condition: Stable Instructions: ED Stone Renal W Colic Follow-Up: Killian Sage MD [Provider Admit Priv/Credential] - Prescriptions: Tamsulosin [Flomax] 0.4 mg PO DAILY #30 cap Naproxen 250 mg PO BID PRN #30 tablet PRN Reason: Pain Oxycodone HCl/Acetaminophen [Percocet 5-325 mg Tablet] 1 - 2 each PO Q6H PRN #14 tablet PRN Reason: pain Ondansetron Odt [Zofran] 4 mg TL Q6H PRN #30 tablet PRN Reason: Nausea / Vomiting Forms: PCP List
[2023-08-19 05:42] LABS: BASOPHILS % (AUTO) 0.5 %; EOSINOPHILS # (AUTO) 0.2 10^3/uL (0.0-0.7); EOSINOPHILS % (AUTO) 2.7 %; HCT - HEMATOCRIT 37.6 % (37.0-47.0); HGB - HEMOGLOBIN 12.6 g/dL (12.0-16.0); LYMPHOCYTES # (AUTO) 2.2 10^3/uL (1.5-3.5); LYMPHOCYTES % (AUTO) 27.9 %; MEAN CORPUSCULAR HEMOGLOBIN 30.6 pg (27.0-31.0); MEAN CORPUSCULAR HGB CONC 33.5 g/dL (32.0-36.0); MEAN CORPUSCULAR VOLUME 91.3 fL (81.0-99.0); MEAN PLATELET VOLUME 10.4 fL (7.9-10.8); MONOCYTES # (AUTO) 0.6 10^3/uL (0.0-1.0); MONOCYTES % (AUTO) 7.1 %; NEUTROPHILS # (AUTO) 4.9 10^3/uL (1.5-6.6); NEUTROPHILS % (AUTO) 61.5 %; PLT - PLATELET COUNT 261 10^3/uL (130-450); RED BLOOD COUNT 4.12 10^6/uL (4.20-5.40); RED CELL DISTRIBUTION WIDTH 12.2 % (12.0-15.0); WHITE BLOOD COUNT 7.9 x10^3/uL (4.8-10.8)
[2023-08-19 06:05] LABS: ALBUMIN 4.1 g/dL (3.2-5.5); ALBUMIN/GLOBULIN RATIO 1.5 (1.0-2.2); BILIRUBIN,TOTAL 0.3 mg/dL (0.2-1.0); POTASSIUM 3.6 mmol/L (3.5-4.5); TOTAL PROTEIN 6.9 g/dL (6.4-8.9)
[2023-08-19 06:55] LABS: BILIRUBIN,URINE NEGATIVE (NEGATIVE); GLUCOSE, URINE (UA) NEGATIVE (NEGATIVE); KETONES,URINE (UA) NEGATIVE (NEGATIVE); LEUKOCYTE ESTERASE, URINE NEGATIVE (NEGATIVE); NITRITE,URINE NEGATIVE (NEGATIVE); OCCULT BLOOD,URINE LARGE (NEGATIVE); PROTEIN,URINE NEGATIVE (NEGATIVE); UROBILINOGEN,URINE 0.2 (NORMAL) E.U./dL (NORMAL)
[2023-08-19 07:00] LABS: CLARITY,URINE CLEAR (CLEAR)
[2023-08-19 07:06] LABS: BACTERIA,URINE Few /HPF (None Seen); MUCUS,URINE Few Strands; RBC,URINE TNTC /HPF (0-5); SQUAMOUS EPITHELIAL CELL,UR FEW Squamous (<= Few); WBC,URINE 0-3 /HPF (0-5)
[2023-08-19 07:33] VITALS: BP 104/65
--- NOTE | 2023-08-19 10:11 | CT Report ---
PROCEDURE: ABDOMEN/PELVIS WO INDICATIONS: R FLANK PAIN, HX KIDNEY STONES TECHNIQUE: A CT scan of the abdomen and pelvis was performed without the use of intravenous contrast. Images we re recorded and evaluated at appropriate window settings. Reformats: coronal and sagittal. For radiat ion dose reduction, the following was used: automated exposure control, adjustment of mA and/or kV ac cording to patient size. COMPARISON: CT abdomen and pelvis, 04/06/2019, 03/15/2018. FINDINGS: Image quality: Excellent. Lung bases and heart: Unremarkable. Liver: No solid mass. Gallbladder and biliary tree: Normal gallbladder. No biliary dilation. Spleen: No splenomegaly. Pancreas: No pancreatic ductal dilation. Adrenals: No adrenal nodule. Kidneys and ureters: There is a 4 mm stone in the proximal right ureter demonstrating CT density 523 Hounsfield units. There is mild right hydronephrosis. Multiple nonobstructive renal calculi are prese nt bilaterally. Approximately 3-41 small 1-2 mm stones are seen in right kidney. Approximately 4 ston es are seen in left kidney measuring 1-4 mm. No left hydronephrosis. No renal cystic lesion which req uires follow up. No solid mass. Bowel and peritoneum: No bowel distension. No pathologic free fluid. Normal appendix. There is a larg e amount of stool in colon. Lymph nodes: No central or retroperitoneal adenopathy. Vessels: No infrarenal aortic aneurysm. PELVIS Reproductive organs: Unremarkable. Bladder: No wall thickness, accounting for underdistention. Pelvic lymph nodes: No pelvic adenopathy by size criteria. Bones: No aggressive osseous abnormality. Other: No significant ventral or inguinal hernia. IMPRESSION: 1. A 4 mm obstructive stone in the proximal right ureter, causing mild right hydronephrosis. 2. Bilateral nonobstructive renal calculi. Findings are concordant with preliminary interpretation provided by [facility]. Reviewed by: Kit Moscoso MD on 08/19/2023 10:09 AM [facility] Approved by: Kit Moscoso MD on 08/19/2023 10:09 AM PST Station ID: [id number]
== END 2023-08-19 07:30 | disposition home or self-care (01) ==
LOC: ED 04:54
DX: N13.2 Hydronephrosis with renal and ureteral calculous obstruction (principal)
CPT/HCPCS: 36415; 80053; 81001; 81003; 85025; 87086; 96374; 96375; 99284

== ENCOUNTER 2024-01-05 09:46 | Outpatient (CLI) | payer BC ==
--- NOTE | 2024-01-05 15:28 | Ultrasound Report ---
PROCEDURE: Renal (Retroperitoneal) INDICATIONS: CALCULUS OF KIDNEY TECHNIQUE: Real-time scanning was performed of the retroperitoneal organs, with image documentation. COMPARISON: CT of the abdomen dated 08/19/2023. FINDINGS: Kidneys: Right kidney measures 7.8 cm long; left kidney measures 9.8 cm long. The cortical thickness evaluated on the current study measures 6 mm bilaterally which is substantially less than the compar aliya CT dated 08/19/2023 where the cortical thickness is approximately 1.6 cm in diameter bilaterally . No solid masses, hydronephrosis, or nephrolithiasis. Echogenic foci are visualized within the bilat eral kidneys. On the right a 4 mm focus is present at the superior pole on the left a 7 mm lateral fo cus and a 6 mm inferior focus are noted. Bladder: Pre-void bladder volume is 52 mL. Post-void residual is 0.8 mL. Pre-void images demonstra te no intraluminal masses or stones. On pre-void images, bilateral ureteral jets are noted with colo r Doppler interrogation. (Of note, ureteral jets may not be detectable in up to 25% of cases due to insufficient differences in specific gravity between ureteral and bladder urine). Miscellaneous: No free abdominal fluid. IMPRESSION: 1. Echogenic foci bilaterally suggesting nonobstructing nephrolithiasis. 2. Differential and cortical thickness measured on the CT dated 08/19/2023 on the current study. It i s unclear whether there has been made dramatic change in the renal cortical thickness or this represe nts a difference in scanning technique. Repeat ultrasound of the kidneys with closer attention to the cortical thickness could be used if clinically indicated. Alternatively, repeat CT scan could be use d. 3. No postvoid residual. Reviewed by: Mary Webb MD on 01/05/2024 3:26 PM PDT Approved by: Mary Webb MD on 01/05/2024 3:26 PM PDT Station ID: [id number]
== END 2024-01-05 09:47 | disposition home or self-care (01) ==
LOC: DI 09:46
PROVIDERS: ATTEND Internal Medicine
DX: N20.0 Calculus of kidney (principal)